=== PATIENT | male | born 1945 | race Caucasian/White ===

== ENCOUNTER 2018-08-04 16:37 | Emergency (ER) | payer MEDICARE ==
[~2018-08-04] VITALS: Ht 185.4 cm; Wt 103.0 kg
--- OUTSIDE RECORDS SUMMARY | ~2018-08-04 | XMS | Clinical Summary ---
Demographics + + + | Address | [address] | | | [place] [address] | + + + | Home Phone | | + + + | Preferred Language | Unknown | + + + | Marital Status | Single | + + + | Caodaism Affiliation | NON | + + + | Race | White | + + + | Ethnic Group | Not or | + + + Author + + + | Author | [facility] | + + + | Organization | [facility] | + + + | Address | Unknown | + + + | Phone | Unavailable | + + + Support + + + + + | Name | Relationship | Address | Phone | + + + + + | MARIBETH MORGAN | ECON | [address] | | | | | [place] | | | | | [address] | | + + + + + Care Team Providers + +------+ + | Care Vice President Education Name | Role | Phone | + +------+ + | Zenon Glasgow MD | PP | | + +------+ + Source Comments SURY is fully live on both EpicCare Ambulatory and EpicCare InPatient.[facility] Allergies + + + + + + | Active Allergy | Reactions | Severity | Noted | Comments | | | | | Date | | + + + + + + | Penicillin G | Edema | | 07/30/20 | | | | | | 08 | | + + + + + + Current Medications + + +--------+---------+------+------+-------+ | Prescription | Sig. | Disp. | Refills | Star | End | Statu | | | | | | t | Date | s | | | | | | Date | | | + + +--------+---------+------+------+-------+ | CITALOPRAM | Take 20 mg by mouth | | | | | Activ | | HYDROBROMIDE | once daily. | | | | | e | | (CITALOPRAM ORAL) | | | | | | | + + +--------+---------+------+------+-------+ | simvastatin 20 mg | Take 20 mg by mouth | | | | | Activ | | Oral Tablet | once daily in the | | | | | e | | | evening. | | | | | | + + +--------+---------+------+------+-------+ | BETA-CAROTENE,A, | Take 1 tablet by | | | | | Activ | | W-C & E/MIN (OCUVITE | mouth once daily. | | | | | e | | ORAL) | | | | | | | + + +--------+---------+------+------+-------+ | ASPIRIN ORAL | Take 81 mg by mouth | | | | | Activ | | | once daily. | | | | | e | + + +--------+---------+------+------+-------+ | naproxen sodium | Take by mouth. | | | | | Activ | | 220 mg oral | Indications: Mild | | | | | e | | capsuleIndications: | Arthritic Pain | | | | | | | Mild Arthritic Pain | | | | | | | + + +--------+---------+------+------+-------+ | oxyCODONE, | Take 1 tablet by | 60 | 0 | 05/0 | | Activ | | immediate release, 5 | mouth every six | tablet | | 9/20 | | e | | mg oral tablet | hours as needed (for | | | 14 | | | | | pain.). 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 | + + + Family History + + +------+ + | Medical History | Relation | Name | Comments | + + +------+ + | Cancer | Brother | | | + + +------+ + | Cancer | Sister | | | + + +------+ + + +------+ + + | Relation | Name | Status | Comments | + +------+ + + | Brother | | | alcoholism | | | | (Age | | | | | 54) | | + +------+ + + | Brother | | Alive | | + +------+ + + | Brother | | | | + +------+ + + | Father | | | | | | | (Age | | | | | 71) | | + +------+ + + | Mother | | | alcoholism | | | | (Age | | | | | 50) | | + +------+ + + | Sister | | Alive | | + +------+ + + | Sister | | Alive | | + +------+ + + | Sister | | | | + +------+ + + Social History + +-------+ +--------+ + | Tobacco Use | Types | Packs/Day | Years | Date | | | | | Used | | + +-------+ +--------+ + | Former Smoker | | 1 | 20 | Started: 01/12/1994 | + +-------+ +--------+ + + +---+---+---+ | Smokeless Tobacco: | | | | | Never Used | | | | + +---+---+---+ + + | Tobacco Cessation: Ready to Quit: Yes; Counseling Given: Yes | | Comments: he has been trying to cut down, but unable 02/20/2014 | + + + + +---------+ + | Alcohol Use | Drinks/We | oz/Week | Comments | | | ek | | | + + +---------+ + | Yes | 6 | 3.6 | when on golf course, intermittent | | | Standard | | | | | drinks or | | | | | | | | | | equivalen | | | | | t | | | + + +---------+ + + + + | Sex Assigned at | Date Recorded | | | | + + + | Not on file | | + + + Last Filed Vital Signs + + + + | Vital Sign | Reading | Time Taken | + + + + | Blood Pressure | 137/69 | 08/25/2017 12:59 PM PDT | + + + + | Pulse | 88 | 08/25/2017 12:59 PM PDT | + + + + | Temperature | 37.1 C (98.7 F) | 08/25/2017 12:59 PM PDT | + + + + | Respiratory Rate | 16 | 08/25/2017 12:59 PM PDT | + + + + | Oxygen Saturation | 97% | 08/25/2017 12:59 PM PDT | + + + + | Inhaled Oxygen | - | - | | Concentration | | | + + + + | Weight | 106.1 kg (234 lb) | 08/25/2017 12:59 PM PDT | + + + + | Height | 185.4 cm (6' 1") | 08/25/2017 12:59 PM PDT | + + + + | Body Mass Index | 30.87 | 08/25/2017 12:59 PM PDT | + + + + Plan of Treatment +--------+---------+ + + + | Date | Type | Specialty | Care Team | Description | +--------+---------+ + + + | 08/24/ | Office | | Martir Anthony, | | | 2018 | Visit | | [address] | | | | | | [address] | | | | | | [place], [place] | | | | | | [address] | | | | | | [phone] | | | | | | | | +--------+---------+ + + + + + + + + | Health Maintenance | Due Date | Last Done | Comments | + + + + + | Pneumococcal (Adult) | | | | | (1 of 2 - PCV13) | 0 | | | + + + + + | INFLUENZA VACCINE | | | | | (FLU SHOT) | 8 | | | + + + + + Results Not on filefrom Last 3 Months Insurance + +--------+ +--------+ + + | Payer | Benefi | Subscriber | Type | Phone | Address | | | t Plan | ID | | | | | | / | | | | | | | Group | | | | | + +--------+ +--------+ + + | MEDICARE | MEDICA | xxxxxxxxxx | Medica | +- | [address] | | | RE A & | | re | [address] | [place] [address] | | | B | | | | | + +--------+ +--------+ + + | | TRICAR | xxxxxxxxx | Indemn | +- | | | | E 4 | | ity | [phone] | | | | LIFE | | | | | + +--------+ +--------+ + + | [place] | xxxxxxxxx | Agency | - | [address] | | ADMINISTRATION | COMMUN | | | [phone] | [place] [address] | | | [place] | | | | | | | OUTSOU | | | | | | | RCE | | | | | + +--------+ +--------+ + + + +--------+ +--------+ + + | Guarantor Name | Accoun | Relation to | Date | Phone | Billing Address | | | t Type | Patient | of | | | | | | | | | | + +--------+ +--------+ + + | DARWIN VU | Person | Self [birth year] | Home: | [address] | | | al/Fam | | 1945 | +- | [place] [address] | | | [place] | | | [address] | | + +--------+ +--------+ + + | DARWIN VU | [place] | Self | [birth year] | Home: | [address] | | | [address] | | 1945 | +- | [place] [address] | | | red | | | [address] | | + +--------+ +--------+ + +
--- OUTSIDE RECORDS SUMMARY | ~2018-08-04 | XMS | Clinical Summary ---
Demographics + + + | Address | [address] | | | [place] [address] | + + + | Home Phone | | + + + | Preferred Language | Unknown | + + + | Marital Status | Single | + + + | Synagogue Affiliation | Unknown | + + + | Race | Unknown | + + + | Ethnic Group | Unknown | + + + Author + + + | Author | [facility] | | | and [place] | + + + | Organization | [facility] | | | and [place] | + + + | Address | Unknown | + + + | Phone | Unavailable | + + + Support + + + + + | Name | Relationship | Address | Phone | + + + + + | Ling Bailey | ECON | [address] | | | | | [place], [place] | | | | | [address] | | + + + + + Care Team Providers + +------+ + | Care French Teacher Name | Role | Phone | + +------+ + | No, Physician | PP | Unavailable | + +------+ + Allergies + + + + + + | Active Allergy | Reactions | Severity | Noted | Comments | | | | | Date | | + + + + + + | Penicillins | | | 04/10/20 | | | | | | 14 | | + + + + + + Current Medications + + +-------+---------+------+------+-------+ | Prescription | Sig. | Disp. | Refills | Star | End | Statu | | | | | | t | Date | s | | | | | | Date | | | + + +-------+---------+------+------+-------+ | citalopram | Take 10 mg by mouth | | | | | Activ | | (CELEXA) 10 mg | Daily. | | | | | e | | tablet | | | | | | | + + +-------+---------+------+------+-------+ | aspirin 81 mg EC | Take 81 mg by mouth | | | | | Activ | | tablet | Daily. | | | | | e | + + +-------+---------+------+------+-------+ | simvastatin | Take 10 mg by mouth | | | | | Activ | | (ZOCOR) 10 mg tablet | nightly. | | | | | e | + + +-------+---------+------+------+-------+ | naproxen | Take 250 mg by mouth | | | | | Activ | | (NAPROSYN) 250 mg | 2 times daily (with | | | | | e | | tablet | breakfast & | | | | | | | | dinner). | | | | | | + + +-------+---------+------+------+-------+ | oxyCODONE 10 MG | Take 5-10 mg by | | | | | Activ | | TABS | mouth every 4 hours | | | | | e | | | as needed. | | | | | | + + +-------+---------+------+------+-------+ Active Problems + + + | Problem | Noted Date | + + + | Hand pain | 04/10/2014 | + + + Social History + + + +--------+------+ | Tobacco Use | Types | Packs/Day | Years | Date | | | | | Used | | + + + +--------+------+ | Current Every Day | Cigarettes | 1 | | | | Smoker | | | | | + + + +--------+------+ + + | Tobacco Cessation: Ready to Quit: No | + + + + +---------+ + | Alcohol Use | Drinks/We | oz/Week | Comments | | | ek | | | + + +---------+ + | Yes | | | | + + +---------+ + + + + | Sex Assigned at | Date Recorded | | | | + + + | Not on file | | + + + Plan of Treatment + + + + + | Health Maintenance | Due Date | Last Done | Comments | + + + + + | Vaccine: | | | | | Dtap/Tdap/Td (1 - | 4 | | | | Tdap) | | | | + + + + + | Vaccine: Zoster (1 | | | | | of 2) | 5 | | | + + + + + | Vaccine: | | | | | Pneumococcal 65+ | 0 | | | | Low/Medium Risk (1 | | | | | of 2 - PCV13) | | | | + + + + + | Vaccine: Influenza | | | | | (#1) | 8 | | | + + + + + Results Not on filefrom Last 3 Months Insurance + +--------+ +--------+-------+---------+ | Payer | Benefi | Subscriber | Type | Phone | Address | | | t Plan | ID | | | | | | / | | | | | | | Group | | | | | + +--------+ +--------+-------+---------+ | [employer] ADMIN | [place] | [id number] | Indemn | | | | | [place] | | ity | | | | | ADMIN | | | | | | | [place] | | | | | | | [place] | | | | | + +--------+ +--------+-------+---------+ + +--------+ +--------+ + + | Guarantor Name | Accoun | Relation to | Date | Phone | Billing Address | | | t Type | Patient | of | | | | | | | | | | + +--------+ +--------+ + + | DARWIN VU | Person | Self | [birth year] | Home: | [address] | | | [address] | | 1945 | [phone] | [place] | | | [place] | | | [phone] | [phone] | + +--------+ +--------+ + +"
--- OUTSIDE RECORDS SUMMARY | ~2018-08-04 | XMS | Clinical Summary ---
Demographics + + + | Address | [address] | | | [place] [address] | + + + | Home Phone | | + + + | Preferred Language | Unknown | + + + | Marital Status | Single | + + + | Mormonism Affiliation | Unknown | + + + | Race | Unknown | + + + | Ethnic Group | Unknown | + + + Author + + + | Author | [facility] | | | and [place] | + + + | Organization | [facility] | | | and [place] | + + + | Address | Unknown | + + + | Phone | Unavailable | + + + Support + + + + + | Name | Relationship | Address | Phone | + + + + + | Ling Bailey | ECON | [address] | | | | | [place], [place] | | | | | [address] | | + + + + + Care Team Providers + +------+ + | Care Green Building Engineer Name | Role | Phone | + [...] +--------+-------+---------+ | [employer] | [place] | [id number] | Indemn | | | | | [...] | [place] | | | [phone] | [phone] | + +--------+ +--------+ + +"
--- OUTSIDE RECORDS SUMMARY | ~2018-08-04 | XMS | Clinical Summary ---
Demographics + + + | Address | [address] | | | [place] [address] | + + + | Home Phone | | + + + | Preferred Language | Unknown | + + + | Marital Status | Single | + + + | Religion Affiliation | NON | + + + [...] + | MARIBETH MORGAN | ECON | [address] | | | | | [place] | | | | | [address] | | + + + + + Care Team Providers + +------+ + | Care Maintainer Sewer And Waterworks Name | Role | Phone | + +------+ + | Zenon Glasgow MD | PP | | + +------+ + Source Comments SURY is fully live on both EpicCare Ambulatory and EpicCare InPatient.[facility] Allergies + + + + [...] | | 2018 | Visit | | [address] | | | | | | [address] | | | | | | [place], [place] | | | | | | [address] | | | | | | [phone] | | | | | | | [...] | [address] | [address] | [place] [address] | | | B | | | [...] | COMMUN | | | [address] | [place] [address] | | | ITY | | | [...] | 1945 | +- | [place] [address] | | | [place] | | | [address] | | + +--------+ +--------+ + + | DARWIN VU | [place] | Self | [birth year] | Home: | [address] | | | [address] | | 1945 | +- | [place] [address] | | | red | | | [address] | | + +--------+ +--------+ + +
[2018-08-04] MEDS ORDERED: SIMVASTATIN20 MG (16:58)
[2018-08-04] MEDS ORDERED: VITAMIN D1000 UNIT (16:59)
[2018-08-04] MEDS ORDERED: OMEPRAZOLE20 MG (16:59)
[2018-08-04] MEDS ORDERED: FLUOXETINE HCL20 MG (16:59)
[2018-08-04] MEDS ORDERED: ANECREAM5 GM TOP (16:59)
[2018-08-04] MEDS ORDERED: KETOROLAC TROME10 MG PO (18:08)
[2018-08-04] MEDS ORDERED: BACLOFEN10 MG PO (18:08)
== END 2018-08-04 18:26 | disposition home or self-care (01) ==
LOC: ED 16:37
DX: S09.90XA Unspecified injury of head, initial encounter (principal); S16.1XXA Strain of muscle, fascia and tendon at neck level, initial encounter; Z88.0 Allergy status to penicillin; Z79.899 Other long term (current) drug therapy; W18.30XA Fall on same level, unspecified, initial encounter
CPT/HCPCS: 70450; 72125; 99284

== ENCOUNTER 2020-08-28 20:37 | Emergency (ER) | payer MEDICARE, OTHER ==
[~2020-08-28] VITALS: Ht 185.4 cm; Wt 111.1 kg
[~2020-08-28 20:37] MED LIST: ANECREAM5 GM TOP; BACLOFEN10 MG PO; FLUOXETINE HCL20 MG; KETOROLAC TROME10 MG PO; OMEPRAZOLE20 MG; SIMVASTATIN20 MG; VITAMIN D1000 UNIT
[2020-08-28] MEDS ORDERED: CIPRO500 MG PO (22:29)
== END 2020-08-28 23:00 | disposition home or self-care (01) ==
LOC: ED 20:37
DX: N39.0 Urinary tract infection, site not specified (principal); N20.0 Calculus of kidney; Z87.442 Personal history of urinary calculi; F17.200 Nicotine dependence, unspecified, uncomplicated; Z88.0 Allergy status to penicillin; Z79.899 Other long term (current) drug therapy
CPT/HCPCS: 74176; 80053; 81001; 85025; 96365; 99284-25; J0696

== ENCOUNTER 2022-02-26 15:36 | Emergency (ER) | payer MEDICARE, OTHER ==
[~2022-02-26] VITALS: Ht 185.4 cm; Wt 108.9 kg
[~2022-02-26 15:36] MED LIST changes: +CIPRO500 MG PO
[2022-02-26] MEDS ORDERED: AMLODIPINE BESY10 MG PO (16:46)
[2022-02-26] MEDS ORDERED: METRONIDAZOLE500 MG PO (19:28)
[2022-02-26] MEDS ORDERED: CIPRO500 MG PO (19:28)
== END 2022-02-26 19:58 | disposition home or self-care (01) ==
LOC: ED 15:36
DX: R19.7 Diarrhea, unspecified (principal); R10.30 Lower abdominal pain, unspecified; F17.200 Nicotine dependence, unspecified, uncomplicated; Z88.0 Allergy status to penicillin; Z88.8 Allergy status to other drugs, medicaments and biological substances; Z79.899 Other long term (current) drug therapy
CPT/HCPCS: 36415; 74177; 80053; 81001; 83735; 85025; 99284-25; J7040; Q9967

== ENCOUNTER 2024-10-08 17:39 | Emergency (ER) | payer OTHER ==
[~2024-10-08] VITALS: Ht 185.4 cm; Wt 105.0 kg
[~2024-10-08 17:39] MED LIST changes: +AMLODIPINE BESY10 MG PO; +METRONIDAZOLE500 MG PO; +PREDNISONE20 MG PO; +VENTOLIN HFA18 GM INH
[2024-10-08] MEDS ORDERED: ALBUTEROL/IPRATROPIUM 3 ML NEB INH PRN (18:00)
[2024-10-08 18:11] LABS: BASOPHILS 0.8 % (0-2); EOSINOPHILS 1.1 % (0-6); HEMATOCRIT 43.1 % (35.0-50.0); HEMOGLOBIN 14.6 g/dL (12.0-18.0); LYMPHOCYTES 11.7 % (24-44); MCH 34.2 (27-36); MCV 100.5 fl (81-99); MONOCYTES 6.7 % (0-12); NEUTROPHILS 79.7 % (39-80); PLATELET COUNT 250 K/uL (140-440); RBC 4.29 M/ul (4.3-5.7); RDW 13.9 (10.5-15.0)
[2024-10-08 18:19] LABS: ALBUMIN 3.5 g/dL (3.4-5.0); ALBUMIN/GLOBULIN RATIO 0.8 (1.1-2.4); ANION GAP 16.4 (7-21); BILIRUBIN, TOTAL 0.8 ng/dL (0.2-1.0); BUN/CREATININE RATIO 8.9 (6.0-28.6); CALCIUM 9.8 mg/dL (8.5-10.1); CREATININE, SERUM 1.46 mg/dL (0.70-1.30); MAGNESIUM 2.3 mg/dL (1.8-2.4); POTASSIUM 4.4 mmol/L (3.5-5.1); PROTEIN, TOTAL 7.9 g/dL (6.4-8.2)
[2024-10-08] MEDS ORDERED: AZITHROMYCIN 250 MG HOME.PACK PO ONE (20:00)
[2024-10-08] MEDS ORDERED: methylPREDNISolone SOD SUCC 125 MG/2 ML VIAL IV ONE (20:00)
[2024-10-08] MEDS ORDERED: methylPREDNISolone 4 MG HOME.PACK PO ONE (20:00)
[2024-10-08 20:52] VITALS: BP 159/100
--- NOTE | 2024-10-09 21:56 | EKG ---
[facility] [address] [facility] [place] [address] Signed Normal sinus rhythm Nonspecific ST abnormality Abnormal ECG When compared with ECG of 29-SEP-2022 19:10, No significant change was found Confirmed by Dylan Carrion MD () on 10/09/2024 9:56:44 PM Electronically Signed By: DYLAN CARRION MD 10/09/24 [id number] PATIENT NAME: HORACEDARWIN ZACHERY Electrocardiogram DATE OF : 45 PHYSICIAN: DYLAN CARRION MD REPORT #: [id number] REPORT IS CONFIDENTIAL AND NOT TO BE RELEASED WITHOUT AUTHORIZATION
== END 2024-10-08 20:54 | disposition home or self-care (01) ==
LOC: ED 17:39
PROVIDERS: Emergency Medicine
DX: J44.1 Chronic obstructive pulmonary disease with (acute) exacerbation (principal); F17.200 Nicotine dependence, unspecified, uncomplicated; Z79.899 Other long term (current) drug therapy; Z88.0 Allergy status to penicillin; Z88.8 Allergy status to other drugs, medicaments and biological substances
CPT/HCPCS: 36415; 71045; 80053; 83735; 84484; 85025; 93005; 93010; 94640; 96374; 99285-25; J2919